=== PATIENT | male | born 1945 | race Two or more races ===

== ENCOUNTER 2023-08-06 18:29 | Observation (INO) | payer OTHER, SELFPAY ==
[2023-08-06] VITALS (29 sets, daily range): BP systolic 104–207; BP diastolic 61–164; PULSE 68–101; RESP 13–26; TEMP 36.5–37.5; O2SAT 91–99; BMI 24.6
--- NOTE | ~2023-08-06 | CT_ITS ---
EXAMINATION: CT abdomen pelvis w con DATE: 08/06/2023 20:13 INDICATION: Abdominal pain. Nausea and vomiting. Diarrhea. TECHNIQUE: Computed tomography (CT) of the abdomen and pelvis was performed with 100 mL Omnipaque 350 intravenous contrast. Automated exposure control and iterative reconstruction technique were employe d. The dose-length product was 567.78 mGy-cm. COMPARISON: None. FINDINGS: The visualized portions of the lung bases demonstrate mild atelectasis. No pleural effusion . The heart size is normal. There are coronary artery calcifications. No pericardial effusion. The li nicole, gallbladder, spleen, pancreas, and adrenal glands are normal. There are cysts in the kidneys elijah suring up to 4.2 cm on the left. There is cortical thinning of the kidneys. Aortic atherosclerosis is noted. There is a left inguinal hernia containing fat. There is wall thickening of the rectum. There are no dilated loops of bowel. The appendix is normal. There are no pathologically enlarged lymph no graciela. There is no free intraperitoneal fluid. There are old fractures of the right superior and inferi or pubic rami. There is screw fixation of right sacroiliac joint. There is plate and screw fixation o f multiple right-sided ribs. There are chronic burst fractures of L1 and L4. There is mild lumbar spo ndylosis. IMPRESSION: 1. Wall thickening of the rectum, consistent with proctitis. 2. Left inguinal hernia containing fat. Reviewed, dictated and finalized at location E.
--- NOTE | ~2023-08-06 | CT_ITS ---
EXAMINATION: CT brain wo con DATE: 08/06/2023 20:04 INDICATION: Confusion. Altered mental status. TECHNIQUE: Computed tomography (CT) of the head was performed without intravenous contrast. The mA wa s adjusted according to patient size. Iterative reconstruction technique was employed. The dose-lengt h product was 605.33 mGy-cm. COMPARISON: None FINDINGS: There are scattered areas of low attenuation in the cerebral white matter. There are old in farcts in right frontal and parietal lobes. There is an old infarct involving the left basal ganglia. There is no intracranial hemorrhage, acute infarction, or abnormal intracranial mass lesion. There i s ex vacuo dilatation of anterior body of left lateral ventricle. There is mild mucosal thickening in the paranasal sinuses. There are likely changes of ocular lens replacement surgeries. The mastoid ai r cells are normal. IMPRESSION: 1. 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 2. Mild nonspecific cerebral white matter disease, which likely represents chronic small vessel ische bri disease. Reviewed, dictated and finalized at location E. IMPRESSION: 1. Old infarcts involving the right frontal and parietal lobes and left basal g anglia. 2. Mild nonspecific cerebral white matter disease, which likely represents hackler doll wigs arianna small vessel ischemic disease.
[2023-08-06 19:04] LABS: Basophils Absolute Auto 0.1 K/mm3 (0.0-0.1); Basophils Percent Auto 0.5 % (0.2-1.2); Eosinophils Percent Auto 0.1 % (0-4.4); Hematocrit 50.8 % (42.0-52.0); Hemoglobin 16.4 g/dL (14.0-18.0); Immature Granulocyte Absolute 0.05 K/mm3 (0.00-0.031); Immature Granulocyte Percent A 0.5 % (0-0.5); Lymphocytes Absolute Auto 0.95 K/mm3 (0.9-3.2); Lymphocytes Percent Auto 8.6 % (18.3-44.2); Mean Corpuscular HGB Conc 32.3 g/dl (32-36); Mean Corpuscular Hemoglobin 27.8 pg (26-34); Mean Corpuscular Volume 86.2 fl (80-100); Mean Platelet Volume 10.8 fl (7.4-10.4); Monocytes Absolute Auto 0.6 K/mm3 (0.1-0.6); Monocytes Percent Auto 5.8 % (2.6-8.5); Neutrophils Absolute Auto 9.3 K/mm3 (1.3-6.7); Neutrophils Percent Auto 84.5 % (45.5-73.1); Platelet Count Result 253 k/mm3 (150-375); Red Blood Count 5.89 M/mm3 (4.6-6.20); Red Cell Distribution Width 14.7 % (11.5-14.5)
[2023-08-06 19:14] LABS: Alanine Aminotransferase 17 U/L (6-50); Albumin Level 4.6 g/dL (3.5-5.1); Alkaline Phosphatase 95 U/L (38-126); Anion Gap 10 mmol/L (4-12); Aspartate Amino Transferase 25 U/L (17-59); Bilirubin,Total 0.7 mg/dL (0.2-1.3); Blood Urea Nitrogen 29 mg/dL (9-20); Carbon Dioxide 31 mmol/L (22-30); Chloride 102 mmol/L (98-107); Estimated CRCL calculation 51 ml/min; Estimated Glomerular Filt Rate > 60; Glucose 240 mg/dL (65-110); Lipase 129 U/L (23-300); Potassium 3.9 mmol/L (3.4-5.0); Sodium 143 mmol/L (137-145)
[2023-08-06 19:20] LABS: Add Urine Microscopic? YES; Appearance Urine Clear (Clear); Bacteria Urine None Seen /hpf; Bilirubin Urine Negative (Negative); Blood Urine 2+ (Negative); Color Urine Yellow (Yellow); Glucose Urine UA 3+ mg/dL (Negative); Ketones Urine 1+ mg/dL (Negative); Leukocyte Esterase Ur Negative LEU/UL (Negative); Nitrate Urine Negative (Negative); Non Pathogenic Casts 0-2; Protein Urine 2+ mg/dL (Negative); Specific Grav Ur 1.033 (1.001-1.035); Squamous Epithelial Cell Urine None Seen /hpf (Few); WBC Urine 0-5 /hpf (0-3); pH Urine 5.5 (5.0-9.0)
--- NOTE | 2023-08-06 19:37 | ECG_ITS ---
[facility] [address] Test Date: 2023-08-06 Pat Name: Mathew Dailey Department: Room: Gender: Manager Power: : 1945 Requested By: Devin Rosado Order Number: [id number] Reading MD: Noelle Flores M.D. Measurements Intervals [place] Rate: 88 P: 34 OR: 177 QRS: 17 QRSD: 86 T: 152 QT: 350 QTc: 424 Interpretive Statements SINUS RHYTHM NONSPECIFIC ST & T-WAVE ABNORMALITY BASELINE ARTIFACT LIMITS INTERPRETATION No previous ECG available for comparison Electronically Signed On 08-07-2023 12:06:20 CDT by Noelle Flores M.D.
[2023-08-06] MEDS: SODIUM CHLORIDE 0.9% IV 1,000 ML 999 ML IV CONT (19:49)
[2023-08-06] MEDS: ONDANSETRON INJ 4 MG/2 ML VIAL IV PUSH (19:50)
[2023-08-06 20:14] LABS: Troponin I < 0.012 ng/mL (0.000-0.034)
[2023-08-06 20:15] LABS: Procalcitonin 0.2 ng/mL
--- NOTE | 2023-08-06 20:26 | ED.GENADULT ---
HPI - General Adult General Chief complaint: Weakness Stated complaint: vomiting Time Seen by Provider: 08/06/23 19:22 History of Present Illness HPI narrative: patient is a 77-year-old gentleman who presents emergency department with chief complaint of nausea vomiting diarrhea family reports that the patient has been somewhat confused and also reports that he has had episodes of constipation reports symptoms been ongoing for the last 2 days reports that not improved by anything history is somewhat limited as the history is obtained through and [place] family service assistant Related Data Allergies Allergy/AdvReac Type Severity Reaction Status Date / Time No Known Allergies Allergy Verified 08/06/23 19:10 Exam Narrative: GENERAL: Well-appearing, well-nourished, and in no acute distress. HEAD: Normocephalic, atraumatic. EYES: PERRLA and EOMI. ENT: Nares clear, no rhinorrhea or epistaxis. Mucous membranes moist. NECK: Supple. CHEST: Clear to auscultation. No respiratory distress. HEART: Regular rate and rhythm. No murmur heard. Normal peripheral pulses. ABDOMEN: Soft, nontender, nondistended, normal active bowel sounds. EXTREMITIES: Normal range of motion. No edema. SKIN: Warm, dry, no rash. NEURO: No focal deficits. Alert and oriented And somewhat can. PSYCH: Normal mood and affect. Course Vital Signs Vital signs: Vital Signs Temperature 37.5 C 08/06/23 18:29 Pulse Rate 100 08/06/23 18:29 Respiratory Rate 21 H 08/06/23 18:29 Blood Pressure 148/81 H 08/06/23 18:29 Pulse Oximetry 95 08/06/23 18:29 Oxygen Delivery Room Air 08/06/23 18:29 Temperature 37.5 C 08/06/23 18:29 Pulse Rate 100 08/06/23 18:29 Respiratory Rate 21 H 08/06/23 18:29 Blood Pressure 148/81 H 08/06/23 18:29 Pulse Oximetry 95 08/06/23 18:29 Oxygen Delivery Room Air 08/06/23 18:29 Medical Decision Making [facility] Narrative Medical decision making narrative: differential diagnosis includes UTI, intra-abdominal infection, dehydration, electrolyte abnormality, metabolic encephalopathy laboratory studies were obtained which showed a white count 11.0 hemoglobin was elevated at 16.4 electrolytes showed a BUN of 29 creatinine 1.0 lactic acid was 1.9 liver enzymes were normal troponin was negative lipase was normal procalcitonin 0.2 urinalysis showed 1+ ketones no evidence of UTI. CT scan of the abdomen pelvis showed FINDINGS: The visualized portions of the lung bases demonstrate mild atelectasis. No pleural effusion. The heart size is normal. There are coronary artery calcifications. No pericardial effusion. The liver, gallbladder, spleen, pancreas, and adrenal glands are normal. There are cysts in the kidneys measuring up to 4.2 cm on the left. There is cortical thinning of the kidneys. Aortic atherosclerosis is noted. There is a left inguinal hernia containing fat. There is wall thickening of the rectum. There are no dilated loops of bowel. The appendix is normal. There are no pathologically enlarged lymph nodes. There is no free intraperitoneal fluid. There are old fractures of the right superior and inferior pubic rami. There is screw fixation of right sacroiliac joint. There is plate and screw fixation of multiple right-sided ribs. There are chronic burst fractures of L1 and L4. There is mild lumbar spondylosis. IMPRESSION: 1. Wall thickening of the rectum, consistent with proctitis. 2. Left inguinal hernia containing fat. CT head showed no acute abnormalities the case was discussed with the hospitalist and the patient will be admitted for observation. Vital Signs Vital Signs: Vital Signs Temperature 37.5 C 08/06/23 18:29 Pulse Rate 100 08/06/23 18: Respiratory Rate 21 H 08/06/23 18:29 Blood Pressure 148/81 H 08/06/23 18:29 Pulse Oximetry 95 08/06/23 18:29 Oxygen Delivery Room Air 08/06/23 18:29 Temperature 37.5 C 08/06/23 18:29 Pulse Rate 100 08/06/23 18:29 Respiratory Rate
[2023-08-06 20:29] LABS: Lactic Acid Reflex 1.9 mmol/L (0.7-2.0)
--- NOTE | 2023-08-06 21:40 | PC.NURSE ---
eveline clark at bedside to update pt. pt is requesting to leave ama.
[2023-08-06] MEDS: LORazepam INJ (*CRX) 2 MG/ML VIAL 0.5 MG IV PUSH (22:34)
--- NOTE | 2023-08-06 22:42 | PC.NURSE ---
blood cultures obtained and sent to lab with kurin label in blue biohazard bag. No distress noted.
--- NOTE | 2023-08-06 23:07 | PM.IMHP ---
H&P: HPI History of Present Illness Date/Time: 08/06/23 23:07 Chief Complaint: Nausea and vomiting Narrative: patient is 77-year-old male with a history of diabetes comes to the hospital with nausea and vomiting. Family reports that he has been more confused recently initially had constipation denies diarrhea. Patient not good historian does note a cooperative in giving history but tells you in with 10 pieces that he does not have any chest pain or shortness of breath but would like to go to a regular room and was to be taken out from the [facility]. Patient's speech is cleared but pressured that could be from the language barrier. Review of Systems Review of Systems: All systems reviewed & are unremarkable except as noted in HPI and below Meds Home Medications and Allergies Home Medications Medication Instructions Recorded Confirmed Type clonidine HCl 0.1 mg tablet 0.1 mg PO TID high blood pressure 08/06/23 08/06/23 History dapagliflozin propanediol 10 mg 10 mg PO DAILY 08/06/23 08/06/23 History tablet (Farxiga) Allergies Allergy/AdvReac Type Severity Reaction Status Date / Time No Known Allergies Allergy Verified 08/06/23 19:10 Vital Signs Vital Signs - 24 hr 08/06/23 18:29 08/06/23 18:36 08/06/23 18:37 Temperature 37.5 C Pulse Rate 100 101 H 99 Respiratory Rate 21 H 25 H 25 H Blood Pressure 148/81 H 148/81 H Pulse Oximetry 95 96 96 Oxygen Delivery Room Air 08/06/23 18:45 08/06/23 18:46 08/06/23 19:00 Temperature Pulse Rate 96 95 96 Respiratory Rate 25 H 25 H 18 Blood Pressure 163/88 H Pulse Oximetry 95 93 96 Oxygen Delivery 08/06/23 19:01 08/06/23 19:15 08/06/23 19:17 Temperature Pulse Rate 94 91 93 Respiratory Rate 23 H 26 H 19 Blood Pressure 163/79 H 160/78 H Pulse Oximetry 94 95 94 Oxygen Delivery 08/06/23 19:30 08/06/23 19:32 08/06/23 19:45 Temperature Pulse Rate 93 94 88 Respiratory Rate 20 20 22 H Blood Pressure 133/73 Pulse Oximetry 95 97 96 Oxygen Delivery 08/06/23 19:46 08/06/23 20:16 08/06/23 20:17 Temperature Pulse Rate 88 93 92 Respiratory Rate 17 19 24 H Blood Pressure 150/76 H 157/84 H Pulse Oximetry 91 98 96 Oxygen Delivery 08/06/23 20:30 08/06/23 20:33 08/06/23 20:45 Temperature Pulse Rate 97 92 86 Respiratory Rate 19 21 H 21 H Blood Pressure 207/164 H Pulse Oximetry 98 96 Oxygen Delivery 08/06/23 20:47 08/06/23 21:00 08/06/23 21:02 Temperature Pulse Rate 89 82 Respiratory Rate 15 18 18 Blood Pressure 155/79 H 136/61 Pulse Oximetry 99 96 95 Oxygen Delivery 08/06/23 21:15 08/06/23 21:16 08/06/23 21:30 Temperature Pulse Rate 84 84 93 Respiratory Rate 18 13 15 Blood Pressure 104/61 Pulse Oximetry Oxygen Delivery 08/06/23 21:31 08/06/23 21:45 08/06/23 22:07 Temperature Pulse Rate 88 84 Respiratory Rate 17 23 H Blood Pressure 146/95 H Pulse Oximetry 98 Oxygen Delivery 08/06/23 22:41 Temperature Pulse Rate 68 Respiratory Rate 16 Blood Pressure Pulse Oximetry 98 Oxygen Delivery Exam Narrative: GENERAL: Well appearing, no acute distress. HEAD: Normocephalic, atraumatic. NECK: Supple. No adenopathy, no masses. RESPIRATORY: respirations nonlabored. , no rales, wheezing. CARDIOVASCULAR: Regular rate and rhythm without murmurs, . Peripheral pulses 2+ and equal bilaterally. ABDOMINAL: Soft, nontender, nondistended, no hepatosplenomegaly. Normoactive BS. MUSCULOSKELETAL: no Epigastric and no hypochondrial tenderness SKIN: Warm, dry, NEURO: A&O X3. Moves all extremities H&P: Results Labs Labs: Short CBC 08/06/23 Range/Units 18:54 WBC 11.0 H (4.5-10.0) K/mm3 Hgb 16.4 (14.0-18.0) g/dL Hct 50.8 (42.0-52.0) % Plt Count 253 (150-375) k/mm3 [facility] 08/06/23 18:54 Sodium 143 Potassium 3.9 Chloride 102 Carbon Dioxide 31 H BUN 29 H Creatinine 1.00 Glucose 240 H Calcium 9.0
--- NOTE | 2023-08-06 23:22 | ADMGEN ---
This patient, Mathew Dailey, was admitted to [address] [place] [address] Room 325-02. Patient/family oriented to hospital policies and general routines including ID bracelet, bed and alarms, visiting hours, pain management, procedures, bathroom and other care routines, personal items, smoking policy, room service/diet, and visiting hours. Information on how to activate the Rapid Response Team has been discussed. Patient/Family are encouraged to report perceived risks to care and to ask questions if they do not understand what they are told or what they should do.
[2023-08-06 23:41] LABS: Hemoglobin A1C 7.8 % (<5.7)
[2023-08-07] MEDS: SODIUM CHLORIDE 0.45% 1,000 ML 100 ML IV CONT (00:59)
[2023-08-07] MEDS: levoFLOXacin 750 MG/D5W 150 ML 750 MG/150 ML BAG 100 MG IVPB ×2 (01:00→22:39)
[2023-08-07 05:53] LABS: Basophils Absolute Auto 0.1 K/mm3 (0.0-0.1); Basophils Percent Auto 0.8 % (0.2-1.2); Eosinophils Percent Auto 0.3 % (0-4.4); Hematocrit 43.8 % (42.0-52.0); Hemoglobin 13.6 g/dL (14.0-18.0); Immature Granulocyte Absolute 0.01 K/mm3 (0.00-0.031); Immature Granulocyte Percent A 0.1 % (0-0.5); Lymphocytes Percent Auto 20.8 % (18.3-44.2); Mean Corpuscular HGB Conc 31.1 g/dl (32-36); Mean Corpuscular Hemoglobin 27.9 pg (26-34); Mean Corpuscular Volume 89.9 fl (80-100); Mean Platelet Volume 11.6 fl (7.4-10.4); Monocytes Absolute Auto 1.1 K/mm3 (0.1-0.6); Monocytes Percent Auto 13.6 % (2.6-8.5); Neutrophils Percent Auto 64.4 % (45.5-73.1); Platelet Count Result 176 k/mm3 (150-375); Red Blood Count 4.87 M/mm3 (4.6-6.20); Red Cell Distribution Width 14.9 % (11.5-14.5); White Blood Count 7.7 K/mm3 (4.5-10.0)
[2023-08-07 06:08] VITALS: BP 125/63; PULSE 72; RESP 18; TEMP 36.6; O2SAT 95
[2023-08-07 06:12] LABS: Anion Gap 8 mmol/L (4-12); Blood Urea Nitrogen 23 mg/dL (9-20); Calcium 7.7 mg/dL (8.4-10.2); Carbon Dioxide 26 mmol/L (22-30); Chloride 104 mmol/L (98-107); Estimated CRCL calculation 51 ml/min; Estimated Glomerular Filt Rate > 60; Glucose 163 mg/dL (65-110); Potassium 3.4 mmol/L (3.4-5.0); Sodium 138 mmol/L (137-145)
[2023-08-07] MEDS: PANTOPRAZOLE 40 MG TABLET PO (09:19)
[2023-08-07 10:01] LABS: Glucose Point of Care 160 mg/dl (65-105)
[2023-08-07 11:18] LABS: Glucose Point of Care 168 mg/dl (65-105)
--- NOTE | 2023-08-07 11:30 | PM.IMPN ---
Progress Note: A&P Assessment and Plan (1) Altered mental status: Code(s): R41.82 - Altered mental status, unspecified Status: Acute Assessment and Plan: Likely metabolic, secondary to infection Head CT with old infarcts and chronic ischemic disease but no acute findings Will check TSH, B12, folate Blood cultures pending Continue to monitor mental status closely Consider neurology consultation if no improvement (2) Nausea & vomiting: Code(s): R11.2 - Nausea with vomiting, unspecified Status: Acute Assessment and Plan: Presented with nausea, vomiting, diarrhea. Likely related to infection Nausea and vomiting have resolved Continue gentle IV fluid hydration until better tolerating diet Currently on clear liquid diet. Will advance to full liquids. Continue to advance as tolerated (3) Proctitis: Code(s): K62.89 - Other specified diseases of anus and rectum Status: Acute Assessment and Plan: CT abdomen/pelvis shows wall thickening of rectum consistent with proctitis Continue Levaquin Monitor stool patterns Advance diet as above Stool occult blood test ordered (4) Diabetes mellitus: Code(s): E11.9 - Type 2 diabetes mellitus without complications Status: Acute Assessment and Plan: A1c is 7.8 Continue Accu-Cheks, sliding scale insulin, hypoglycemic protocol Continue home Farxiga Hold home Lantus at this time as he is on liquid diet. Resume once diet is advanced with 20% dose reduction from home dose Subjective Date/time seen: 08/07/23 11:30 Interval history: Assuming care today. Patient is confused. Has a sitter with him currently his he was wandering in the halls. Is not able to answer questions reliably but denies any significant pain or other concerns. Review of Systems Review of Systems: ROS unobtainable: Yes unobtainable due to mental status Exam Narrative: General: Well-nourished, well-appearing 77-year-old male, sitting up in a chair by the bedside, comfortable, NARD Neuro: awake, alert and oriented x3, speech clear, no focal neuro deficits noted, confused HEENMT: normocephalic, atraumatic, EOMI, sclerae anicteric Respiratory: clear to auscultation bilaterally, nonlabored breathing Cardio: regular rate, regular rhythm with S1-S2 Abdomen: nondistended, normoactive bowel sounds, soft, nontender to palpation Extremities: no edema, erythema, or tenderness to palpation Skin: no rashes or lesions, warm and dry Psych: Pleasantly confused Objective Data Vital Signs Vital Signs: Vital Signs - 24 hr 08/06/23 18:29 08/06/23 18:36 08/06/23 18:37 Temperature 99.5 F Pulse Rate 100 101 H 99 Respiratory Rate 21 H 25 H 25 H Blood Pressure 148/81 H 148/81 H Pulse Oximetry 95 96 96 Oxygen Delivery Room Air 08/06/23 18:45 08/06/23 18:46 08/06/23 19:00 Temperature Pulse Rate 96 95 96 Respiratory Rate 25 H 25 H 18 Blood Pressure 163/88 H Pulse Oximetry 95 93 96 Oxygen Delivery 08/06/23 19:01 08/06/23 19:15 08/06/23 19:17 Temperature Pulse Rate 94 91 93 Respiratory Rate 23 H 26 H 19 Blood Pressure 163/79 H 160/78 H Pulse Oximetry 94 95 94 Oxygen Delivery 08/06/23 19:30 08/06/23 19:32 08/06/23 19:45 Temperature Pulse Rate 93 94 88 Respiratory Rate 20 20 22 H Blood Pressure 133/73 Pulse Oximetry 95 97 96 Oxygen Delivery 08/06/23 19:46 08/06/23 20:16 08/06/23 20:17 Temperature Pulse Rate 88 93 92 Respiratory Rate 17 19 24 H Blood Pressure 150/76 H 157/84 H Pulse Oximetry 91 98 96 Oxygen Delivery 08/06/23 20:30 08/06/23 20:33 08/06/23 20:45 Temperature Pulse Rate 97 92 86 Respiratory Rate 19 21 H 21 H Blood Pressure 207/164 H Pulse Oximetry 98 96 Oxygen Delivery 08/06/23 20:47 08/06/23 21:00 08/06/23 21:02 Temperature Pulse Rate 89 82 Respiratory Rate 15 18 18 Blood Pressure 155/79 H 136/61 Pulse Oximetry 99 96 95 Oxygen De
[2023-08-07 14:00] VITALS: BP 135/55; PULSE 86; RESP 18; TEMP 36.5; O2SAT 98
[2023-08-07] MEDS: SODIUM CHLORIDE 0.9% IV 1,000 ML 75 ML IV CONT (14:45)
[2023-08-07 16:16] LABS: Glucose Point of Care 176 mg/dl (65-105)
[2023-08-07 21:03] LABS: Glucose Point of Care 139 mg/dl (65-105)
[2023-08-07 22:00] VITALS: BP 165/62; PULSE 80; RESP 18; TEMP 37.4; O2SAT 97
[2023-08-08 06:19] LABS: Hematocrit 45.5 % (42.0-52.0); Hemoglobin 14.3 g/dL (14.0-18.0); Mean Corpuscular HGB Conc 31.4 g/dl (32-36); Mean Corpuscular Volume 89.2 fl (80-100); Mean Platelet Volume 11.1 fl (7.4-10.4); Platelet Count Result 179 k/mm3 (150-375); Red Cell Distribution Width 14.7 % (11.5-14.5); White Blood Count 9.6 K/mm3 (4.5-10.0)
[2023-08-08 06:41] LABS: Anion Gap 7 mmol/L (4-12); Blood Urea Nitrogen 18 mg/dL (9-20); Calcium 7.8 mg/dL (8.4-10.2); Carbon Dioxide 24 mmol/L (22-30); Chloride 104 mmol/L (98-107); Estimated CRCL calculation 47 ml/min; Estimated Glomerular Filt Rate > 60; Glucose 147 mg/dL (65-110); Potassium 3.4 mmol/L (3.4-5.0); Sodium 135 mmol/L (137-145)
[2023-08-08 07:37] LABS: Glucose Point of Care 147 mg/dl (65-105)
[2023-08-08 07:45] LABS: Folic Acid 13.2 ng/mL (2.76->20)
--- NOTE | 2023-08-08 09:35 | PC.NURSE ---
RN spoke with patient via stratus screen maker. Patient stated he was in pain and had not had a bowel movement in 3 days. After assessment daughter called requesting an update via telephone. RN spoke with daughter and gave update. RN explained that patient was having pain and constipation. Daughter told RN he is not to get any pain medication, but he can have constipation medication. RN called hospitalist Ly and explained this. Hospitalist Elva stated she would order medication for constipation.
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
[2023-08-08] MEDS: LIDOCAINE 5% PATCH 1 PATCH TRANSDERM (11:28)
[2023-08-08] MEDS: polyethylene glycoL 3350 17 GM POWD.PACK PO (11:28)
[2023-08-08 11:34] LABS: Glucose Point of Care 163 mg/dl (65-105)
[2023-08-08] MEDS: SODIUM CHLORIDE 0.9% IV 1,000 ML 75 ML IV CONT (11:37)
[2023-08-08 14:00] VITALS: BP 112/52; PULSE 81; RESP 16; TEMP 36.4; O2SAT 96
[2023-08-08 14:42] VITALS: O2SAT 95
[2023-08-08 16:19] LABS: Glucose Point of Care 127 mg/dl (65-105)
[2023-08-08 20:00] VITALS: PULSE 81; RESP 16; O2SAT 95
[2023-08-08 22:08] LABS: Glucose Point of Care 146 mg/dl (65-105)
[2023-08-08] MEDS: levoFLOXacin 750 MG/D5W 150 ML 750 MG/150 ML BAG 100 MG IVPB (23:01)
[2023-08-09] VITALS: BP 161/91; PULSE 66; RESP 14; TEMP 36.3; O2SAT 98
[2023-08-09] MEDS: SODIUM CHLORIDE 0.9% IV 1,000 ML 75 ML IV CONT (01:50)
[2023-08-09 05:00] VITALS: BP 149/79; PULSE 75; RESP 14; TEMP 36.1; O2SAT 97
[2023-08-09 07:35] LABS: Glucose Point of Care 163 mg/dl (65-105)
[2023-08-09] MEDS: polyethylene glycoL 3350 17 GM POWD.PACK PO (08:18)
[2023-08-09] MEDS: PANTOPRAZOLE 40 MG TABLET PO (08:18)
[2023-08-09] MEDS: ENOXAPARIN 40 MG/0.4 ML SYRINGE SUB-Q (08:19)
[2023-08-09] MEDS: LIDOCAINE 5% PATCH 1 PATCH TRANSDERM (08:19)
--- NOTE | 2023-08-09 10:42 | PM.DS ---
DS: Admitting Diagnosis Discharge Date 08/09/23 Admitting Diagnosis UTI hematuria DS: Discharge Diagnosis Discharge Diagnosis (1) Proctitis: Code(s): K62.89 - Other specified diseases of anus and rectum Status: Acute (2) UTI (urinary tract infection): Code(s): N39.0 - Urinary tract infection, site not specified Status: Acute (3) Diabetes mellitus: Code(s): E11.9 - Type 2 diabetes mellitus without complications Status: Acute (4) Altered mental status: Code(s): R41.82 - Altered mental status, unspecified Status: Acute (5) Nausea & vomiting: Code(s): R11.2 - Nausea with vomiting, unspecified Status: Acute DS: Summary Hospital Course Reason for hospitalization: Altered mental status, UTI Hospital Course: Patient is a pleasant 77-year-old male with past medical history of type 2 diabetes insulin dependent, essential hypertension who presents to ED with complaints of altered mental status. Family notes that patient has increased confusion in times that his blood sugars are very high. Presented with nausea, vomiting, constipation. Patient no sick contacts, no recent travels. Workup in the ED showed proctitis and he has been started on Levaquin. His electrolytes stable within normal limits and his mentation improved with supportive care and antibiotics. Altered mental status may have been from the acute infection. Metabolic workup is stable, within normal limits TSH B12 folic acid, negative blood cultures. Patient will be given 7 more days Levaquin to complete 10 day antibiotic course. He has been given p.r.n. MiraLax for constipation. He may start a multivitamin. At time of discharge patient's labs stable, vitals stable, patient's mentation is back to baseline, patient is stable for discharge home. Patient's family updated bedside. Patient understands and agrees with plan. Status at Discharge Cognitive/behavioral status at discharge: baseline Time Spent with Patient Time attestation: Total time spent providing and/or coordinating discharge services: 35 minutes Exam Narrative: - GENERAL: Pleasant elderly male in no acute distress. Well-nourished. - EYES: EOMI. Anicteric. - HENT: Moist mucous membranes. - LUNGS: Clear to auscultation bilaterally, no wheezing, rhonchi, or rales. - CARDIOVASCULAR: Regular rate and rhythm. No murmur. No JVD. - ABDOMEN: Soft, non-tender and non-distended. No palpable masses. - EXTREMITIES: No edema. Peripheral pulses 2+. Non-tender. - NEUROLOGIC: No focal neurological deficits. CN II-XII grossly intact. - PSYCHIATRIC: Awake, Alert and oriented x 3. Appropriate mood and affect. - SKIN: No rashes or lesions. Warm. - LYMPH: No cervical lymphadenopathy. DS: Data Data Completed and Pending Labs on day of discharge: Labs from last 24 hours 08/09/23 08/08/23 08/08/23 07:21 20:28 16:09 POC Capillary Glucose 163 H 146 H 127 H 08/08/23 11:28 POC Capillary Glucose 163 H Preliminary micro results at discharge 08/06/23 22:34 Blood Culture - Preliminary Blood 08/06/23 22:34 Blood Culture - Preliminary Blood Imaging Radiologist's impression: CT head 08/06/23: IMPRESSION: 1. 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 2. Mild nonspecific cerebral white matter disease, which likely represents chronic small vessel ischemic disease. CT abd/pel 08/06/23 IMPRESSION: 1. Wall thickening of the rectum, consistent with proctitis. 2. Left inguinal hernia containing fat. Discharge Plan Discharge Attending physician on discharge: Asael Mitchell Discharging Clinician: Asael Mitchell Anticipated Discharge Date/Time: 08/09/23 10:33 Patient Disposition: Home, Self-Care Activity: as tolerated Diet: regular Discharge Instructions: You may start a multivitamin. We checked the electrolytes which are all within normal limits, B12 folic acid, thy
[2023-08-09 13:08] LABS: PSA, Free 0.7 ng/mL; PSA, Total 1.9 ng/mL (< OR = 4.0); Percent Free Prostate Spec Ag 37 % (calc) (>25)
== END 2023-08-09 11:10 | disposition home or self-care (01) ==
LOC: ANHED 21:47 → ANH3MEDSUR 22:41
PROVIDERS: Emergency Medicine; Physician Assistant; Admitting Provider Internal Medicine; Emergency Provider Emergency Medicine; PCP Family Medicine Sports Medicine; Visit Provider Student in an Organized Health Care Education/Training Program
DX: N39.0 Urinary tract infection, site not specified (principal); K62.89 Other specified diseases of anus and rectum; R11.2 Nausea with vomiting, unspecified; E11.9 Type 2 diabetes mellitus without complications; G93.41 Metabolic encephalopathy; I10 Essential (primary) hypertension; K40.90 Unilateral inguinal hernia, without obstruction or gangrene, not specified as recurrent; Z79.84 Long term (current) use of oral hypoglycemic drugs; Z79.4 Long term (current) use of insulin
CPT/HCPCS: 36415; 70450; 74177; 80048; 80053; 81001; 82607; 82746; 82948; 83036; 83605; 83690; 84145; 84153; 84154; 84443; 84484; 85025; 85027; 87040; 87086; 93005; 96360; 96361; 96365; 96366; 96372; 96374; 96375; 99285; A9270; G0378; G0379; J1650; J1956; J2060; J2405; J7030; Q9967